=== PATIENT | female | born 1970 | race Caucasian/White ===

== ENCOUNTER 2022-08-01 17:29 | Emergency (ER) | payer MEDICAID ==
[~2022-08-01] VITALS: Ht 175.3 cm; Wt 77.1 kg
[2022-08-01] MEDS ORDERED: AMOX TR-K CLV1 EAC1 PO (19:25)
[2022-08-01] MEDS ORDERED: HYDROCODON-ACE1 EA11 PO (19:25)
== END 2022-08-01 19:45 | disposition home or self-care (01) ==
LOC: ED 17:29
DX: J18.9 Pneumonia, unspecified organism (principal); J32.9 Chronic sinusitis, unspecified
CPT/HCPCS: 71046; 99283-25; A9270

== ENCOUNTER 2024-06-03 06:28 | Day surgery (SDC) | payer OTHER ==
[~2024-06-03] VITALS: Ht 175.3 cm; Wt 89.4 kg
[~2024-06-03 06:28] MED LIST: AMOX TR-K CLV1 EAC1 PO; HYDROCODON-ACE1 EA11 PO; MIDAZOLAM HCL 5 MG/5 ML VIAL IV PRN; MULTIVITAMIN1 EACH PO; TRIAMCINOLONE A15 GM; XYZAL5 MG PO; fentaNYL citrate 100 MCG/2 ML VIAL IV PRN
[2024-06-03] MEDS ORDERED: fentaNYL citrate 100 MCG/2 ML VIAL ONE ×2 (06:30→07:34)
[2024-06-03] MEDS ORDERED: MIDAZOLAM HCL 5 MG/5 ML VIAL ONE ×2 (06:31→07:45)
[2024-06-03 06:43] VITALS: BP 135/80
[2024-06-03] MEDS ORDERED: PROBIOTICS1 EACH PO (06:47)
[2024-06-03] MEDS ORDERED: ZYRTEC10 M3 PO (06:47)
[2024-06-03] MEDS ORDERED: FIBER GUMMIES2 GM PO (06:47)
[2024-06-03] MEDS ORDERED: OMEPRAZOLE20 MG PO (06:48)
[2024-06-03] MEDS ORDERED: IBLOOD GLUCOSE TEST STRIP 1 EA TEST VI PRN (07:00)
[2024-06-03] MEDS ORDERED: LIDOCAINE HCL 1% 5 ML SDV INJ ONE (07:00)
[2024-06-03] MEDS ORDERED: LACTATED RINGER'S 1,000 ML IV SCH (07:00)
[2024-06-03 09:15] VITALS: BP 123/85
--- NOTE | 2024-06-03 10:21 | NUR ---
[facility] SLEEPY WITH O2 SATS AT 88%. ENCOURAGED COUGH AND DEEP BREATHING WITH NO CHANGE. O2 AT 2L VIA NC PLACED. SATS INCREASED TO 90%. ABD SOFT. 0820 RESTING. REU. 0845 OXYGEN REMOVED. AWAKENS TO VERBAL STIMULI, THEN FALLS BACK TO SLEEP. 0905 AWAKE AND SITTING UP IN BED. C/O ABD CRAMPING. 0910 AMBULATED TO BATHROOM WITH ONE PERSON ASSIST. VOIDED AND PASSING FLATUS. STATES "I FEEL BETTER." 0915 SITTING AT BEDSIDE GETTING DRESSED. 0922 DC INSTRUCTIONS GIVEN. ALL QUESTIONS ANSWERED. LEFT VIA W/C.
--- NOTE | 2024-06-04 05:57 | OR ---
[facility] [address], [place] [address] Signed DATE OF OPERATION: 06/03/2024 SURGEON: Spencer Caldwell MD PREOPERATIVE DIAGNOSES: 1. Maternal uncle with celiac disease. 2. Maternal grandmother with esophageal cancer. 3. Chronic bloating and abdominal cramping. 4. 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 5. Personal history of colonic nodules removed in 2019 at age 49. POSTOPERATIVE DIAGNOSES: 1. Odfj-yq-zmjksovk gastroduodenitis. 2. Long redundant colon. 3. Tortuous sigmoid colon. 4. Minimal pandiverticulosis. 5. Minimal internal and external hemorrhoids. PROCEDURES: 1. EGD with CLOtest and biopsies of the duodenum, pyloric bulb, antrum, and distal esophagus. 2. Colonoscopy without biopsy. ESTIMATED BLOOD LOSS: None. INDICATIONS: Joan is a 53-year-old female, who two years ago moved out from [place] with her . They help run a local [employer]. She is describing screening colonoscopy in 2019 at the age of 49 with the [facility] associated with [facility]. She describes nodules being removed, but is quite insistent they were not polyps. She was told to follow up in 5 years. She also describes chronic history of abdominal bloating and cramping associated with probable year bowel syndrome with diarrhea and constipation. She said mostly she has diarrhea. She also talks about IgA deficiency. There was some mention of IgA deficiency in the notes, but she was unaware of that today. She told me she does use some Bentyl with some success. She also mentioned that her maternal grandmother had esophageal cancer and a maternal uncle had celiac disease. Otherwise, her family history is unremarkable. I gave Joan and her pamphlets on both upper and lower endoscopy. We reviewed the nature of the two tests. There is risk including, but not limited to gas bloating, crampy abdominal pain, Electronically Signed By: SPENCER CALDWELL MD 06/04/24 0557 PATIENT NAME: JOAN REDMAN OPERATIVE REPORT DATE OF : 66 REPORT #: [id number] PHYSICIAN: SPENCER CALDWELL MD PCP: NO PRIMARY CARE PHYSICIAN REPORT IS CONFIDENTIAL AND NOT TO BE RELEASED WITHOUT AUTHORIZATION [facility] [address] [place] [id number] Signed bleeding, perforation requiring surgery, and missed diagnosis. We also reviewed the written instructions for the bowel prep line by line. She understands the need for IV conscious sedation. An adult person has to take her home afterwards. She had expressed understanding and wished to proceed. PROCEDURE IN DETAIL: Joan was taken into our endoscopy suite and placed in a supine semi-recumbent position. The posterior oropharynx was anesthetized with lidocaine spray. A bite block was utilized for the case. We used a total of 15 mg of Versed and 200 mcg of fentanyl to cover the upper and lower endoscopy. The adult gastroscope was introduced and advanced under direct visualization out into the duodenum. Despite 7 mg of Versed and 100 mcg of fentanyl, she was still awake and looking around. The duodenum proper was unremarkable. We went ahead and took a biopsy because of the family history of celiac disease in her abdominal symptoms. She does have some inflammation in the pyloric bulb and stomach. We went ahead and took biopsies of the pyloric bulb and antrum for pathologic review along with CLOtest. There were no ulcerations. Upon retroflexion of scope, the incisura body and fundus of the stomach were unremarkable. We really cannot appreciate an obvious hiatal hernia. The scope was withdrawn up through the area of the GE junction, which was compliant without stricture. She had mild disruption to the Z-line. There was no Glass's mucosa. The Z-line measures 33 cm from her incisors. We went and took a biopsy of the distal esophagus for pathologic review. Otherwise, the distal middle and upper esophagus were unremarkable. After this, the gas was suctioned out and the gastroscope was removed. Joan tolerated the upper endoscopy overall well. Joan was rotated into the left lateral decubitus position. A digital rectal exam was performed and she does have small external circumferential hemorrhoids. She had good sphincter tone. There were no masses. The adult colonoscope was introduced and advanced under direct visualization of camera. Unfortunately, she was frequently awake during the preprocedure despite 15 mg of Versed and 200 mcg of fentanyl total. She does have a mild to moderately tortuous sigmoid colon. She also has a long redundant left and transverse colon. We made it down in the right colon. We could easily see the ileocecal valve. We could not quite see behind the ileocecal valve of the base of the cecum. Her prep was quite excellent. We had rotated her into the supine position and back in the left lateral decubitus position. Despite this along with abdominal compression and additional sedation, we could not get the scope to advance any further. The scope was then slowly withdrawn. I think in that regard she would be much better served in the future with monitored anesthesia care propofol infusion. She did have a few diverticula scattered throughout her entire colon. They were small to moderate in size, few in number and scattered about. There were no polyps. There were no nodules that we could find. The rectum was unremarkable. Upon retroflexion of scope, she has minimal internal hemorrhoid tissue with at least three small tiny internal anal skin tags. After this, the gas was suctioned out and the colonoscope removed. Overall, Electronically Signed By: SPENCER CALDWELL MD 06/04/24 0557 PATIENT NAME: JOAN REDMAN OPERATIVE REPORT DATE OF : 66 REPORT #: [id number] PHYSICIAN: SPENCER CALDWELL MD PCP: NO PRIMARY CARE PHYSICIAN REPORT IS CONFIDENTIAL AND NOT TO BE RELEASED WITHOUT AUTHORIZATION [facility] [address], [place] [address] Signed Joan tolerated the procedure well. RECOMMENDATIONS: I will see Joan back in my office in 7 to 14 days to review her results. She is highly recommended to consider monitored anesthesia care propofol infusion in the future particularly for a colonoscopy. We need to go back and looked at her records from the [facility] as well. MD RONEY Poon/MARIAL /[id number] cc: Patient chart Arminda Avalos Spencer Caldwell MD Copies: SPENCER CALDWELL MD ~ Electronically Signed By: SPENCER CALDWELL MD 06/04/24 0557 PATIENT NAME: JOAN REDMAN OPERATIVE REPORT DATE OF : 66 REPORT #: [id number] PHYSICIAN: SPENCER CALDWELL MD PCP: NO PRIMARY CARE PHYSICIAN REPORT IS CONFIDENTIAL AND NOT TO BE RELEASED WITHOUT AUTHORIZATION
--- NOTE | 2024-06-05 10:33 | PATH ---
[facility] [address] [place], [place] [address] Signed SPECIMEN(S): A DUODENAL BIOPSY SPECIMEN(S): B PYLORUS BIOPSY SPECIMEN(S): C ANTRUM BIOPSY SPECIMEN(S): D LOWER ESOPHAGUS BIOPSY SPECIMEN SOURCE: A. DUODENAL BIOPSY B. PYLORUS BIOPSY C. ANTRUM BIOPSY D. LOWER ESOPHAGUS BIOPSY CLINICAL HISTORY: History of irritable bowel syndrome, abdominal cramping/bloating, constipation, diarrhea, gastroduodenitis, diverticulosis FINAL PATHOLOGIC DIAGNOSIS: A. 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 B. Pylorus, biopsy: - Minimal chronic gastritis, no H. pylori bacteria are detected by HE stain. C. Antrum, biopsies: - Minimal chronic gastritis, no H. pylori bacteria are detected by HE stain. D. Lower esophagus, biopsies: - Mild chronic esophagitis with increased eosinophils (up to 19 per high-power field). - Negative for Glass's metaplasia. AMB MICROSCOPIC EXAMINATION: Histologic sections of all submitted blocks are examined by light microscopy. These findings, together with the gross examination, support the pathologic diagnosis. GROSS DESCRIPTION: A. The specimen, labeled and designated "Gutierrez, duodenal biopsy," is received in formalin and consists of two lemus soft tissue fragments, ranging from 0.2-0.3 cm. Entirely submitted in (A1). B. The specimen, labeled and designated "Paulaett, pylorus biopsy," is received in formalin and consists of one lemus soft tissue fragment, 0.3 cm. Entirely submitted in (B1). PATIENT NAME: JOAN REDMAN PATHOLOGY DATE OF : 66 REPORT #: [id number] PHYSICIAN: [facility] PCP: NO PRIMARY CARE PHYSICIAN REPORT IS CONFIDENTIAL AND NOT TO BE RELEASED WITHOUT AUTHORIZATION [facility] [address] [place], [place] [address] Signed C. The specimen, labeled and designated "Gutierrez, antrum biopsy," is received in formalin and consists of one lemus soft tissue fragment, 0.6 cm. Entirely submitted in (C1). D. The specimen, labeled and designated "Gutierrez, lower esophageal biopsy," is received in formalin and consists of two lemus soft tissue fragments, ranging from 0.2-0.3 cm. Entirely submitted in (D1). VB (under the direct supervision of a pathologist) The Gross Description was prepared using a voice recognition system. The report was reviewed for accuracy; however, sound-alike word errors, addition and/or deletions may occur. If there is any question about this report, please contact Client Services. ADDITIONAL NOTES: Immunohistochemical and/or in situ hybridization studies if performed in this case included appropriate positive controls that reacted as expected. This test was developed and its performance characteristics determined by [facility]. It has not been cleared or approved by the U.S. Food and Drug Administration. The FDA has determined that such clearance or approval is not necessary. This test is used for clinical purposes. It should not be regarded as investigational or for research. [facility] is certified under the Clinical Laboratory Improvement Amendments of 1988 (CLIA) as qualified to perform high complexity clinical laboratory testing. PERFORMING LABORATORY: Technical component was performed by [facility], [address] [place] [id number] (CLIA# [id number]). Professional interpretation was performed by [facility] [address] [facility] [id number] Diagnostician: Carmelina Mckeon MD Pathologist Electronically Signed 06/05/2024 Copies: ~ PATIENT NAME: JOAN REDMAN PATHOLOGY DATE OF : 66 REPORT #: [id number] PHYSICIAN: [facility] PCP: NO PRIMARY CARE PHYSICIAN REPORT IS CONFIDENTIAL AND NOT TO BE RELEASED WITHOUT AUTHORIZATION
== END 2024-06-03 09:22 | disposition home or self-care (01) ==
LOC: DS 06:28
PROVIDERS: ATTEND Colon & Rectal Surgery
PROC: 0DB38ZX Excision of Lower Esophagus, Via Natural or Artificial Opening Endoscopic, Diagnostic (ICD-10-PCS; 2024-06-03)
PROC: 0DJD8ZZ Inspection of Lower Intestinal Tract, Via Natural or Artificial Opening Endoscopic (ICD-10-PCS; 2024-06-03)
PROC: 0DB98ZX Excision of Duodenum, Via Natural or Artificial Opening Endoscopic, Diagnostic (ICD-10-PCS; principal; 2024-06-03 07:30)
PROC: 0DB68ZX Excision of Stomach, Via Natural or Artificial Opening Endoscopic, Diagnostic (ICD-10-PCS; 2024-06-03 07:30)
DX: K29.90 Gastroduodenitis, unspecified, without bleeding (principal); K57.30 Diverticulosis of large intestine without perforation or abscess without bleeding; K64.8 Other hemorrhoids; K64.4 Residual hemorrhoidal skin tags; K20.90 Esophagitis, unspecified without bleeding; K63.89 Other specified diseases of intestine; I10 Essential (primary) hypertension; F43.10 Post-traumatic stress disorder, unspecified; E78.00 Pure hypercholesterolemia, unspecified; L40.9 Psoriasis, unspecified; K58.9 Irritable bowel syndrome, unspecified; Z79.899 Other long term (current) drug therapy; Z83.79 Family history of other diseases of the digestive system
CPT/HCPCS: 36415; 87077; 99153; G0500; J2250; J3010; J7121